=== PATIENT | female | born 1960 | race Caucasian/White ===

== ENCOUNTER 2023-01-16 01:22 | Day surgery (SDC) | payer BC, SELFPAY ==
[2023-01-07 12:36] VITALS: BMI 21.9
[2023-01-16 09:33] VITALS: BP 196/110; PULSE 80; RESP 18; TEMP 36.5; O2SAT 100; BMI 22.6
--- NOTE | 2023-01-16 09:42 | WPDANESEPPF ---
Anes - Initial Pre Proc Eval Procedure: Operation Date: 01/16/23 10:45 Proposed Procedures p Colonoscopy - Christo Nolasco MD Date/Time: 01/16/23 09:42 Surgeon: Christo Nolasco MD Pre Op Diagnosis: positive cologuard Patient Data Age: 62 Gender: F Height: 1.57 m Weight: 56.2 kg Last Vital Signs Temp 36.5 C 01/16/23 09:33 Pulse 80 01/16/23 09:33 Resp 18 01/16/23 09:33 Pulse Ox 100 01/16/23 09:33 O2 Del Method Room Air 01/16/23 09:33 Allergies Allergy/AdvReac Type Severity Reaction Status Date / Time No Known Allergies Allergy Mild Verified 01/07/23 12:36 Home Medications Medication Instructions Recorded Confirmed Type olmesartan 40 mg tablet 40 mg PO DAILY 09/01/22 01/07/23 History valacyclovir 500 mg tablet 500 mg PO DAILY #90 tabs 12/02/22 01/07/23 Rx atorvastatin 20 mg tablet 20 mg PO DAILY 01/07/23 01/07/23 History cholecalciferol (vitamin D3) 25 25 mcg PO DAILY 01/07/23 01/07/23 History mcg (1,000 unit) tablet (Vitamin D3) metoprolol succinate 25 mg 25 mg PO DAILY 01/07/23 01/07/23 History tablet,extended release 24 hr Patient hx anesthesia problems: none Family hx anesthesia problems: none Results Review: All pre-operative results and documents have been reviewed as part of the pre-operative evaluation. [facility] Past Medical History Medical History (Updated 01/16/23 @ 10:25 by Christo Nolasco MD) Hypertension PCR DNA positive for HSV2 Positive colorectal cancer screening using Cologuard test Vaginal delivery x2 Surgical History Surgical History History of tubal ligation Family History Family History Grandparent Diabetes mellitus paternal grandmother Family history of stroke maternal grandmother Mother Hypertension Acute myocardial infarction Father Leukemia Other Malignant neoplasm of liver maternal aunt Social History Social History (Updated 09/01/22 @ 10:06 by MIRLANDE Vela) Smoking packs per day: 0.5 Smoking cigarettes per day: 10.0 Years smoked: 30 Smoking pack-years: 15.00 Smoking status: Current every day smoker Tobacco type: cigarettes Alcohol intake: current Drinks per week: 10 Substance use: never Substance use type: does not use Living arrangements: with family Additional living arrangements comments: Occupation/Education: retired Gender identity (if verbalized by the patient): Female Sexual Orientation (if Verbalized by the Patient): Straight or Heterosexual Spiritual care concerns: No Anes - Eval Final PreProcedure Day of Procedure 01/16/23 09:42 Patient weight: normal Heart: regular rate and rhythm Lungs: clear to auscultation and normal air movement Airway: Mallampati scale class II Neurological: alert and oriented Last oral intake: >/= 8 hours ASA classification: II Emergent: no Anesthetic plan: proceed Anesthesia type and monitoring: general GIVS Results Review: All pre-operative results and documents have been reviewed as part of the pre-operative evaluation. Informed Consent: The patient's anesthetic plan and its attendant risks and benefits were discussed with the patient/family/POA. Questions were solicited and answers provided to the satisfaction of the patient/family/POA.
[2023-01-16] MEDS: LACTATED RINGERS 1,000 ML 150 ML IV CONT (09:47)
--- NOTE | 2023-01-16 09:49 | SUR.PREOP ---
Dr. Ross notified of pt. blood pressure. No orders received at this time.
--- NOTE | 2023-01-16 10:24 | PM.HPGS ---
History of Present Illness History of Present Illness Consent: Risks, benefits, and alternatives have been discussed and questions answered. Patient agrees to proceed with procedure. Chief complaint: positive cologuard Narrative: Jessica Mac is a 62 year old female here for first colonoscopy, had + cologuard Review of Systems Constitutional: Constitutional: Denies headache(s) and Denies weakness Eyes: Eyes: Denies blurry vision ENT: Reports Normal hearing present, Denies headache(s) and Denies neck pain Cardiovascular: Cardiovascular: Denies chest pain and Denies dyspnea Respiratory: Respiratory: Denies dyspnea Gastrointestinal: Gastrointestinal: Reports no additional gastrointestinal complaints Genitourinary: Genitourinary: Denies dysuria Musculoskeletal: Musculoskeletal: Denies neck pain Integumentary/Breasts: Skin/Breast: Denies dry skin Neurologic: Reports Normal hearing present, Denies headache(s) and Denies weakness Psychiatric: Psychiatric: Denies anxiety Endocrine: Endocrine: Denies change in body appearance Hematologic/Lymphatic: Hematologic/Lymphatic: Denies easy bleeding Allergic/Immunologic: Allergic/Immunologic: Denies urticaria PMFSH Past Medical History Medical History (Updated 01/16/23 @ 10:25 by Christo Nolasco MD) Hypertension PCR DNA positive for HSV2 Positive colorectal cancer screening using Cologuard test Vaginal delivery x2 Surgical History Surgical History History of tubal ligation Family History Family History Grandparent Diabetes mellitus paternal grandmother Family history of stroke maternal grandmother Mother Hypertension Acute myocardial infarction Father Leukemia Other Malignant neoplasm of liver maternal aunt Social History Social History (Updated 09/01/22 @ 10:06 by MIRLANDE Vela) Smoking packs per day: 0.5 Smoking cigarettes per day: 10.0 Years smoked: 30 Smoking pack-years: 15.00 Smoking status: Current every day smoker Tobacco type: cigarettes Alcohol intake: current Drinks per week: 10 Substance use: never Substance use type: does not use Living arrangements: with family Additional living arrangements comments: Occupation/Education: retired Gender identity (if verbalized by the patient): Female Sexual Orientation (if Verbalized by the Patient): Straight or Heterosexual Spiritual care concerns: No Meds Home Medications and Allergies Home Medications Medication Instructions Recorded Confirmed Type olmesartan 40 mg tablet 40 mg PO DAILY 09/01/22 01/07/23 History valacyclovir 500 mg tablet 500 mg PO DAILY #90 tabs 12/02/22 01/07/23 Rx atorvastatin 20 mg tablet 20 mg PO DAILY 01/07/23 01/07/23 History cholecalciferol (vitamin D3) 25 25 mcg PO DAILY 01/07/23 01/07/23 History mcg (1,000 unit) tablet (Vitamin D3) metoprolol succinate 25 mg 25 mg PO DAILY 01/07/23 01/07/23 History tablet,extended release 24 hr Allergies Allergy/AdvReac Type Severity Reaction Status Date / Time No Known Allergies Allergy Mild Verified 01/07/23 12:36 Vital Signs Vital Signs - 24 hr 01/16/23 09:33 Temperature 97.7 F Pulse Rate 80 Respiratory Rate 18 Blood Pressure 196/110 H Pulse Oximetry 100 Oxygen Delivery Room Air Exam Const: General: comfortable and no acute distress HENMT: Face/Nose/Sinus: Normal nares present Eyes: General: appearance normal, both eyes and all related structures Neck: Neck: no JVD Resp: Auscultation: clear to auscultation bilaterally Cardio: Rate: regular rate Rhythm: regular rhythm GI: Inspection: non-distended GI Palp: Yes Soft to palpation Skin: General skin exam: normal color Neuro: General: gait normal Speech: normal speech Extrem: General: normal to inspection Psych: Me
[2023-01-16 11:01] VITALS: BP 150/110; PULSE 92; RESP 20; O2SAT 99
[2023-01-16 11:11] VITALS: BP 174/102; PULSE 78; RESP 20; O2SAT 100
[2023-01-16 11:21] VITALS: BP 184/100; PULSE 62; RESP 18; O2SAT 100
--- NOTE | 2023-01-16 11:21 | SUR.PHASEII ---
DR DODD NOTIFIED OF PT'S BLOOD PRESSURE AND VITAL SIGNS, 184/100, 62, 100% ON ROOM AIR, 18. PT STATES SHE IS ON BLOOD PRESSURE MEDS THAT SHE TAKES OF AN EVENING. NO NEW ORDERS. PT INSTRUCTED TO RESUME ALL MEDS ONCE SHE IS HOME. PT AND SPOUSE STATE UNDERSTANDING.
== END 2023-01-16 11:31 | disposition home or self-care (01) ==
PROVIDERS: PCP Family Medicine Sports Medicine; Visit Provider Internal Medicine Gastroenterology
PROC: 0DJD8ZZ Inspection of Lower Intestinal Tract, Via Natural or Artificial Opening Endoscopic (ICD-10-PCS; CPT 45378; principal; 2023-01-16 10:45)
DX: R19.5 Other fecal abnormalities (principal); D12.2 Benign neoplasm of ascending colon; K63.5 Polyp of colon; I10 Essential (primary) hypertension
CPT/HCPCS: 45385; 45380; 88305; J2704; J7120

== ENCOUNTER 2025-11-05 14:32 | Emergency (ER) | payer BC, SELFPAY ==
[2025-11-05] VITALS (8 sets, daily range): BP systolic 91–134; BP diastolic 54–93; PULSE 60–73; RESP 12–18; TEMP 36.2–36.6; O2SAT 97–100
--- NOTE | ~2025-11-05 | CT_ITS ---
EXAMINATION: CT brain wo con DATE: 11/05/2025 15:28 INDICATION: Syncopal episode. TECHNIQUE: Computed tomography (CT) of the head was performed without intravenous contrast. The mA was adjusted according to patient size. Iterative reconstruction technique was employed. The dose-length product was 605.33 mGy-cm. COMPARISON: Carotid Doppler exam dated 01/13/2011. FINDINGS: No acute bleed. No extra-axial collections. No effacement of sulci. No evidence of ventriculomegaly or midline shift. Age-appropriate, symmetric global cerebral and cerebellar atrophy. IMPRESSION: 1. No acute findings in the limited noncontrast CT head. Reviewed, dictated and finalized at location T. PRINCIPAL TECHNICAL ARCHITECT
--- NOTE | ~2025-11-05 | XR_ITS ---
EXAMINATION: XR chest 2V DATE: 11/05/2025 15:15 INDICATION: Pneumonia. TECHNIQUE: Frontal and lateral views of the chest were obtained. COMPARISON: None. FINDINGS: Heart size is normal. Lungs are free of acute processes. Luma and mediastinum are normal. Significant scoliosis of thoracolumbar spine. IMPRESSION: 1. No acute pulmonary findings. Scoliosis of thoracolumbar spine. Reviewed, dictated and finalized at location T. [employer]
--- OUTSIDE RECORDS SUMMARY | 2025-11-05 14:34 | XMS_ITS | Clinical Summary ---
Author Organization [facility] Address [address] [place] [address] Care Team Providers Care Cost Manager Name Role Phone Whitley Zimmerman NP Primary Care Provider Allergies No known active allergies Medications atorvastatin (LIPITOR) 20 mg tablet Take 1 tablet (20 mg total) by mouth daily 4 Active estradioL (ESTRACE) 0.01 % (0.1 mg/gram) vaginal cream Insert 2 g into the vagina daily 3 Active metoprolol XL (TOPROL-XL) 50 mg extended release tablet Take 1 tablet (50 mg total) by mouth daily 4 Active oxyCODONE-aceta minophen (PERCOCET) 5-325 mg per tabletIndicatio ns:Pain Take 1-2 tablets by mouth every 8 (eight) hours as needed for pain 20 tablet 4 Active Additional Information Patient not taking.Reported on 01/05/2024 valACYclovir (VALTREX) 500 mg tablet valacyclovir 500 mg tablet Active spironolactone (ALDACTONE) 50 mg tablet Take by mouth 4 Active olmesartan-hydr ochlorothiazide (BENICAR HCT) 40-25 mg per tablet Take by mouth 4 Active nicotine (NICODERM CQ) 21 mg nicotine 21 mg/24 hr patch 24 hour Active Active Problems Problem Noted Date Diagnosed Date Acute appendicitis with gene ralized peritonitis without gangrene, perforation, or abscess 01/05/2024 Acute abdominal pain 12/14/2023 Surgical History Surgery Date Site/Laterality Comments APPENDECTOMY 12/15/2023 Social History Tobacco Use Types Packs/Day Years Used Date Smoking Tobacco: Every Day Cigarettes 0.3 15 Tobacco Cessation:Ready to Q uit: Not Asked; Counseling Given: Not Answered AUDIT-C Answer Date Recorded Q1: How often do you have a drink containing alcohol? 4 or more times a week 12/14/2023 Q2: How many drinks containi ng alcohol do you have on a typical day when you are drinking? 3 or 4 Q3: How often do you have si x or more drinks on one occasion? Never 12/14/2023 Personal Safety Answer Date Recorded Have you ever been in or are you currently in a harmful physical or emotional relationship or is someone making you feel afraid or unsafe? 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 Gender Identity Not on file Sexual Orientation Not on file Last Filed Vital Signs Vital Sign Reading Time Taken Comments Blood Pressure 120/86 01/05/2024 1:08 PM SPRAY MACHINE OPERATOR Pulse 82 01/05/2024 1:08 PM SPRAY MACHINE OPERATOR Temperature 36.3 C (97.3 F) 01/05/2024 1:08 PM SPRAY MACHINE OPERATOR Respiratory Rate 18 12/15/2023 11:2 6 AM SPRAY MACHINE OPERATOR Oxygen Saturation 98% 01/05/2024 1:08 PM SPRAY MACHINE OPERATOR Inhaled Oxygen Concentration - - Weight 55.3 kg (121 lb 14.4 oz) 01/05/2024 1:08 PM SPRAY MACHINE OPERATOR Height 157.5 cm (5' 2) 01/05/2024 1:08 PM SPRAY MACHINE OPERATOR Body Mass Index 22.3 01/05/2024 1:08 PM SPRAY MACHINE OPERATOR Plan of Treatment Health Maintenance Due Date Last Done Comments Breast Cancer Screening-Mammogram 1959 Colon Cancer Screening-Colonoscopy 1959 Depression Screening 1959 Hepatitis C Screening 1959 Osteoporosis Screening-Bone Density Scan 1959 DTaP/Tdap/Td Vaccine (1 - Tdap) 1970 Hepatitis B Screening 1977 Pneumococcal vaccine 65+ (1 of 2 - PCV) 1978 Zoster Vaccine (1 of 2) 2009 Well Visit 65+ 2024 Fall Risk Assessment 12/15/2024 12/15/2023 Covid-19 Vaccine ( season) 07/10/202502/2022, 02/13/2021 Influenza Vaccine (#1) 2025 10/06/2016 Insurance [facility] Advance Directives For more information, please contact: [phone] * Full Code (Latest Code Status on File) Date Activated Date Inactivated Comments 12/14/2023 7:22 PM 12/15/2023 4:39 PM Care Teams Cost Manager Relationship Specialty Start Date End Date Whitley Zimmerman NP [address] [place] [address] PCP - General 12/14/23
--- OUTSIDE RECORDS SUMMARY | 2025-11-05 14:34 | XMS_ITS | Encounter Summary ---
Author Organization [facility] Address [address] [place] [address] Care Team Providers Care Test Deskman Name Role Phone Van Krueger MD Primary Care Provider [phone] Encounter Details Date Type Department Care Team (Late st Contact Info) Description 11/13/2020 Lab Requisition [facility] DermPath Lab [address] [place] [address] Lamar Vyas DO [address] [facility] [address] [place] [address] Social History Tobacco Use Types Packs/Day Years Used Date Smoking Tobacco: Never Assessed Comments Unknown Sex and Gender Information Value Date Recorded Sex Assigned at Not on file 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 Gender Identity Not on file Sexual Orientation Not on file documented as of this encounter Plan of Treatment Not on file documented as of this encounter Procedures Procedure Name Priority Date/Time Associated Diagnosis Comments DERMATOPATHOLOGY Routine 11/12/2020 12:0 0 AM CHEESE PANCAKE ROLLER documented in this encounter Results * DERMATOPATHOLOGY (11/12/2020 12:00 AM CHEESE PANCAKE ROLLER) Case Report Dermatopathology Report Case: [id number] Authorizing Provider: Lamar Vyas DO Collected: 11/12/2020 12:00 AM Ordering Location: [facility] Care DermPath Lab Received: 11/13/2020 06:36 AM Pathologist: Florecita Ramirez MD Specimen: Skin, left hand 6:44 PM [employer] DERMATOPATHOLOGY LABORATORY Final Diagnosis Specimen A. SKIN, left hand: SQUAMOUS PROLIFERATION (D48.5) OVERLYING CUTANEOUS HORN (L85.8) (see microscopic description and comment) 1 6:44 PM [facility] DERMATOPATHOLOGY LABORATORY at [address] [employer] [employer]LLER Clinical History R/O cutaneous horn, BVK vs HAK vs SCC, non-healing. 1 6:44 PM [facility] DERMATOPATHOLOGY LABORATORY Gross Description Specimen A: Received is one formalin filled container labeled with the patient's name and designated left hand. The specimen consists of a shave measuring [id number]. Jar 0. 1 6:44 PM [facility] DERMATOPATHOLOGY LABORATORY Microscopic Description Specimen A. SKIN, left hand: Sections show maturational disarray and nuclear pleomorphism of keratinocytes extending throughout the full thickness of the specimen. There is focal parakeratosis and a column of marked compact hyperkeratosis.. The base of this lesion is not visualized. COMMENT: The histological differential diagnosis includes an irritated and inflamed benign keratosis, an actinic keratosis, and squamous cell carcinoma. 1 6:44 PM [facility] DERMATOPATHOLOGY LABORATORY Disclaimer An external and internal positive and negative controls are appropriate for the histochemical, immunohistochemical and immunofluorescence stain(s) in this case (if any), except where stated explicitly. The performance characteristics of the stain(s) cited in this report were developed and its performance characteristic determined by the Dermatopathology Laboratory at [facility], directed by Dr. Tian Sanchez. These tests need not be, and therefore are not, approved by the [place] Food and Drug Administration. The tests are used for clinical purposes. Billing Codes Specimen Charges Stain Charges 78245 1 1 6:44 PM [facility] DERMATOPATHOLOGY LABORATORY Embedded Images 1 6:44 PM [facility] DERMATOPATHOLOGY LABORATORY Pathology/Cytolog y TISSUE SPECIMEN FROM SKIN / Unknown 11/12/2020 11/13/2020 6:36 AM [facility] us Lamar Vyas DO LAB - PATHOLOGY/CYTOLOGY ORDERABLES Final Result DERMATOPATHOLOGY LABORATORY [facility] - Department of Dermatology [address], [address] [phone] documented in this encounter Visit Diagnoses Not on filedocumented in this encounter Care Teams Test Deskman Relationship Specialty Start Date End Date Van Kureger MD [address] [place] [address] PCP - General 02/05/23 documented as of this encounter
--- OUTSIDE RECORDS SUMMARY | 2025-11-05 14:34 | XMS_ITS | Clinical Summary ---
Author Organization [facility] [employer] Address [address] [place] [address] Care Team Providers Care Psychiatric Therapist Name Role Phone Van Krueger MD Primary Care Provider [phone] [facility] [employer],non-owned Affiliates and Associated Physician Practices is amultiple site organization consisting of ambulatory clinics and hospital sitesin [place], [place], [place] and [place]. This disclosure is being madepursuant to the Care Everywhere program and may not contain all information available regarding this patient. Last updated 18.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 Gender Identity Not on file Sexual Orientation Not on file Plan of Treatment Health Maintenance Due Date Last Done Comments BONE DENSITY TESTING 1959 COLOGUARD (AGES 45-75) - COL ON CA SCREENING 1959 COLON MONITORING 1959 COLONOSCOPY - COLON CA SCREENING 1959 CT COLONOGRAPHY - COLON CA SCREENING 1959 Colorectal Cancer Screening 1959 FIT - COLON CA SCREENING 1959 FLEX SIG - COLON CA SCREENING 1959 LIPID TESTING 1959 MAMMOGRAM 1959 HEPATITIS C SCREENING 08/22/1977 DTAP/TDAP/TD VACCINES (1 - Tdap) 1978 PNEUMOCOCCAL VACCINE 50+ (1 of 1 - PCV) 2009 ZOSTER VACCINE (1 of 2) 2009 DEPRESSION SCREENING 11/09/2024 COVID-19 VACCINE (1 - 2024-2 6 season) 2025 INFLUENZA VACCINE (#1) 2025 Respiratory Syncytial Virus (RSV) Vaccine Pt: or over 60 yrs (1 - 1-dose 75+ series) 2034 HEPATITIS B VACCINE Aged Out No longe r eligible based on patient's age to complete this topic HIB VACCINE Aged Out No longer eligi ble based on patient's age to complete this topic HPV VACCINE Aged Out No longer eligi ble based on patient's age to complete this topic MENINGOCOCCAL (Group B) VACC INE SHARED DECISION-MAKING Aged Out No longer eligibl e based on patient's age to complete this topic MENINGOCOCCAL GROUPS A/C/Y/W VACCINE Aged Out No longer eligible b ased on patient's age to complete this topic Care Teams Psychiatric Therapist Relationship Specialty Start Date End Date Van Krueger MD [address] [place] [address] PCP - General 02/05/23
--- NOTE | 2025-11-05 14:40 | ECG_ITS ---
Test Date: 2025-11-05 14:45:32 Measurements Intervals [place] Rate: 61 P: -5 AR: 250 QRS: -17 QRSD: 77 T: 0 QT: 414 QTc: 419 Interpretive Statements SINUS RHYTHM WITH FIRST DEGREE AV BLOCK WITH OCCASIONAL VENTRICULAR PREMATURE COMPLEXES LOW QRS VOLTAGE IN PRECORDIAL LEADS ANTEROSEPTAL INFARCT, AGE INDETERMINATE CONSIDER INFERIOR INFARCT, AGE INDETERMINATE BASELINE ARTIFACT- I, II, III, AVR, AVL, AVF, V3-V6 ABNORMAL ECG No previous ECG available for comparison Electronically Signed On 11-05-2025 20:07:29 BINDERY MACHINE TENDER by Filemon Avendano D.O.
--- NOTE | 2025-11-05 14:42 | ED_ITS ---
HPI - Syncope General Chief Complaint: Syncope <Allie Matthews APRN - Last Filed: 11/05/25 14:45> Stated Complaint: syncope <Allie Matthews APRN - Last Filed: 11/05/25 14:45> Time Seen by Provider: 11/05/25 14:42 <Allie Matthews APRN - Last Filed: 11/05/25 14:45> Focused HPI: Patient is a 65-year-old female presents to the ER after experiencing a syncopal episode. Her family reports they were out to eat, pt had half a [place] when she started feeling faint. Patient's family reports her eyes became fixed and she started slumping in her chair. Her family reports they caught her before she hit anything. Patient's reports he believes patient stopped breathing so 1 of his family members ?gave her a few breaths and she started breathing again. She endorses nausea immediately after regaining consciousness and proceeded to vomit. Patient endorses a history of high blood pressure, hyperlipidemia, and alcoholism. She reports she has recently started to cut back on her alcohol consumption. Patient reports she has never gone through alcohol withdrawal. GENERAL: Ill-appearing, well-nourished, and in no acute distress. HEAD: Normocephalic, atraumatic. CHEST: Mild crackles to bases. ?No respiratory distress. HEART: Regular rate and rhythm.? NEURO: ?Alert and oriented x3. Patient screened in triage and initial orders placed.? ?Additional care and disposition to be based upon?diagnostic testing and treatment. <Allie Matthews APRN - Last Filed: 11/05/25 14:45> History of Present Illness HPI narrative: Agree the HPI. Immediately after regaining consciousness patient was actively vomiting at the restaurant. She had eaten a hamburger as well as peeling each around and had a half daquari. She has not been having any melena. Recently had issues with a GI bleed and has quit drinking. <Kavin Brady MD - Last Filed: 11/05/25 19:52> Related Data Home Medications: Home Medications ?Medication ?Instructions ?Recorded ?Confirmed ?Last Taken ?Type olmesartan 40 mg tablet 40 mg PO DAILY 09/01/2207/03 Unknown History atorvastatin 20 mg tablet 20 mg PO DAILY 01/07/2307/03 Unknown History <Allie Matthews APRN - Last Filed: 11/05/25 14:45> Allergies/Adverse Reactions: Allergies Allergy/AdvReac Type Severity Reaction Status Date / Time No Known Allergies Allergy Mild Verified 10/16/25 10:24 <Allie Matthews APRN - Last Filed: 11/05/25 14:45> Review of Systems 2 Review of Systems: All systems reviewed & are unremarkable except as noted in HPI and below <Kavin Brady MD - Last Filed: 11/05/25 19:52> Constitutional: Constitutional: Reports no additional constitutional complaints <Kavin Brady MD - Last Filed: 11/05/25 19:52> ENT: Reports system reviewed and no additional complaints, except as documented <Kavin Brady MD - Last Filed: 11/05/25 19:52> Cardiovascular: Cardiovascular: Reports no additional cardiovascular complaints <Kavin Brady MD - Last Filed: 11/05/25 19:52> Respiratory: Respiratory: Reports no additional respiratory complaints < Kavin Brady MD - Last Filed: 11/05/25 19:52> Gastrointestinal: Gastrointestinal: Reports no additional gastrointestinal complaints <Kavin Brady MD - Last Filed: 11/05/25 19:52> Neurologic: Reports system reviewed and no additional complaints, except as documented <Kavin Brady MD - Last Filed: 11/05/25 19:52> PMFSH Past Medical History Medical History: Medical History Screening mammogram, encounter for Positive colorectal cancer screening using Cologuard test Vaginal delivery x2 Hypertension PCR DNA positive for HSV2 <Allie Matthews APRN - Last Filed: 11/05/25 14:45> Surgical History Surgical History: Surgical History History of appendectomy History of tubal ligation <Allie Matthews APRN - Last Filed: 11/05/25 14:45> Family History Family History: Family History Grandparent Diabetes mellitus paternal grandmother Family history of stroke maternal grandmother Mother Hypertension Acute myocardial infarction Father Leukemia Other Malignant neoplasm of liver maternal aunt <Allie Matthews APRN - Last Filed: 11/05/25 14:45> Social History Social History: Social History (Updated 10/16/25 @ 10:26 by MIRLANDE Vela) Smoking packs per day: 0.5 Smoking cigarettes per day: 10.0 Years smoked: 30 Smoking pack-years: 15.00 Smoking status: Current every day smoker Tobacco type: cigarettes Second hand tobacco smoke exposure: Yes Alcohol intake: current Drinks per week: 5 Substance use: never Substance use type: does not use Lack of Transportation: No Lack of Food: Never True Current Housing: Decline to Answer Concerned About Future Housing: Decline to Answer Difficulty Paying Gas/Electric Bills: Decline to Answer Difficulty Paying for Meds: Decline to Answer Currently Unemployed: Decline to Answer Education: Decline to Answer Difficulty w/ Childcare or Family Care: Decline to Answer Living arrangements: with family Additional living arrangements comments: Occupation/Education: retired Gender identity (if verbalized by the patient): Female Sexual Orientation (if Verbalized by the Patient): Straight or Heterosexual Spiritual care concerns: No <Allie Matthews APRN - Last Filed: 11/05/25 14:45> Exam 2 Narrative: GENERAL: Well-appearing, well-nourished, and in no acute distress. HEAD: Normocephalic, atraumatic. ENT: Mucous membranes moist. CHEST: Clear to auscultation. No respiratory distress. HEART: Regular rate and rhythm. Normal peripheral pulses. ABDOMEN: Soft, nontender, nondistended. EXTREMITIES: Normal range of motion. No edema. SKIN: Warm, dry, no rash. NEURO: Alert and oriented x3. PSYCH: Normal mood and affect. <Kavin Brady MD - Last Filed: 11/05/25 19:52> Course Course Emergency Course: Patient resting comfortably. Normal orthostatic vital signs. No comparison labs. Sodium mildly low, creatinine 1.2. Hemoglobin 10. Patient feels well. Feels comfortable with discharge home. <Kavin Brady MD - Last Filed: 11/05/25 19:52> Vital Signs Vital signs: Vital Signs Temperature 97.1 F L 11/05/25 14:36 Pulse Rate 62 11/05/25 14:36 Respiratory Rate 18 11/05/25 14:36 Blood Pressure 91/54 L 11/05/25 14:36 Pulse Oximetry 100 11/05/25 14:36 Oxygen Delivery Room Air 11/05/25 14:36 Temperature 98 F 11/05/25 19:20 Pulse Rate 69 11/05/25 19:20 Respiratory Rate 16 11/05/25 19:20 Blood Pressure 111/72 11/05/25 19:20 Pulse Oximetry 100 11/05/25 19:20 Oxygen Delivery Room Air 11/05/25 14:36 <Allie Matthews HAND BUTTON SPLITTER - Last Filed: 11/05/25 14:45> Vital Signs Temperature 97.1 F L 11/05/25 14:36 Pulse Rate 62 11/05/25 14:36 Respiratory Rate 18 11/05/25 14:36 Blood Pressure 91/54 L 11/05/25 14:36 Pulse Oximetry 100 11/05/25 14:36 Oxygen Delivery Room Air 11/05/25 14:36 Temperature 98 F 11/05/25 19:20 Pulse Rate 69 11/05/25 19:20 Respiratory Rate 16 11/05/25 19:20 Blood Pressure 111/72 11/05/25 19:20 Pulse Oximetry 100 11/05/25 19:20 Oxygen Delivery Room Air 11/05/25 14:36 <Kavin Brady MD - Last Filed: 11/05/25 19:52> Critical Care Time Critical Care Time Critical Care Time: No <Kavin Brady MD - Last Filed: 11/05/25 19:52> Discharge Plan Discharge Clinical Impression: Syncope, vasovagal <Allie Matthews APRN - Last Filed: 11/05/25 14:45> Patient Disposition: Home <Allie Matthews APRN - Last Filed: 11/05/25 14:45> Condition: Stable <Allie Matthews APRN - Last Filed: 11/05/25 14:45> Instructions: Syncope (ED) <Allie Matthews APRN - Last Filed: 11/05/25 14:45> Additional Instructions: Please return to the emergency department if you develop severe and persistent chest pain, difficulty breathing, dizziness, leg swelling or if you are coughing up blood as these can be signs of a medical emergency. Please call your doctor for a follow up appointment to determine the need for further testing. <Allie Matthews APRN - Last Filed: 11/05/25 14:45> Patient Language: Kyrgyz <Allie Matthews APRN - Last Filed: 11/05/25 14:45> Prescriptions: No Action olmesartan 40 mg tablet 40 mg PO DAILY estradiol 0.01 % (0.1 mg/gram) cream 1 g vaginal 3XW Qty: 42.5 3RF atorvastatin 20 mg tablet 20 mg PO DAILY valacyclovir 500 mg tablet 500 mg PO DAILY Qty: 90 3RF <Allie Matthews APRN - Last Filed: 11/05/25 14:45> Follow-up/Referrals: UNKNOWN,DOCTOR [Non-Staff] - 1 Week <Allie Matthews APRN - Last Filed: 11/05/25 14:45> MDM Differential Diagnosis Differential Diagnosis: Arrhythmia, vasovagal syncope, P, intracranial hemorrhage, UTI, sepsis < Kavin Brady MD - Last Filed: 11/05/25 19:52> Lab Data Result diagrams: 11/05/25 17:28 11/05/25 17:28 <Allie Matthews APRN - Last Filed: 11/05/25 14:45> Labs: Lab Results 11/05/25 11/05/25 11/05/25 Range/Units 17:28 17:29 18:38 WBC 8.5 (4.5-10.0) K/mm3 RBC 3.28 L (4.2-5.4) M/mm3 Hgb 10.8 L (12.0-15.0) g/dL Hct 30.2 L (37.0-47.0) % MCV 92.1 (80-100) fl MCH 32.9 (26-34) pg MCHC 35.8 (32-36) g/dl RDW 12.3 (11.5-14.5) % Plt Count 275 (150-375) k/mm3 MPV 9.2 (7.4-10.4) fl Immature Gran % (Auto) 0.6 H (0-0.5) % Neut % (Auto) 82.1 H (45.5-73.1) % Lymph % (Auto) 10.9 L (18.3-44.2) % [place] % (Auto) 5.2 (2.6-8.5) % Eos % (Auto) 0.6 (0-4.4) % Baso % (Auto) 0.6 (0.2-1.2) % Lymph # (Auto) 0.93 (0.9-3.2) K/mm3 [place] # (Auto) 0.4 (0.1-0.6) K/mm3 Eos # (Auto) 0.1 (0-0.3) K/mm3 Baso # (Auto) 0.1 (0.0-0.1) K/mm3 Abs Immat Gran (auto) 0.05 H (0.00-0.031) K/mm3 Absolute Neuts (auto) 7.0 H (1.3-6.7) K/mm3 Absolute Nucleated RBC 0.000 (0.0-0.012) K/mm3 Nucleated RBC % 0.0 (0.0-0.2) % Sodium 126 L (137-145) mmol/L Potassium 3.4 (3.4-5.0) mmol/L Chloride 95 L (98-107) mmol/L Carbon Dioxide 25 (22-30) mmol/L Anion Gap 6 (4-12) mmol/L BUN 19 H (7-17) mg/dL Creatinine 1.29 H (0.7-1.0) mg/dL Estim Creat Clear Calc 30 ml/min Estimated GFR 41 L (59 - ) Glucose 102 (65-110) mg/dL Calcium 9.2 (8.4-10.2) mg/dL Total Bilirubin 0.7 (0.2-1.3) mg/dL AST 41 H (14-36) U/L ALT 30 (6-35) U/L Alkaline Phosphatase 80 (38-126) U/L Total Protein 6.9 (6.3-8.2) g/dL Albumin 4.2 (3.5-5.1) g/dL Urine Color Yellow (Yellow) Urine Appearance Clear (Clear) Urine pH 7.5 (5.0-9.0) Ur Specific [place] 1.015 (1.001-1.035) Urine Protein Negative (Negative) mg/dL Urine Glucose (UA) Negative (Negative) mg/dL Urine Ketones Trace H (Negative) mg/dL Ur Blood (Man) Negative (Negative) Urine Nitrate Negative (Negative) Urine Bilirubin Negative (Negative) Urine Urobilinogen 1.0 (<2.0) mg/dL Add Ur Microanalysis Reviewed Leukocyte Esterase Rfl 1+ H (Negative) KALLI/UL Urine RBC 3-5 H (0-2) /hpf Urine WBC 0-5 (0-3) /hpf Ur Squamous Epith Cells Occasional (Few) /hpf Urine Bacteria None seen /hpf Urine Casts 3-5 Ethyl Alcohol < 10 (<10) mg/dL Influenza A (RT-PCR) Negative (Negative) Influenza B (RT-PCR) Negative (Negative) RSV (RT-PCR) Negative (Negative) SARS-CoV-2 RNA (RT-PCR) Negative (Negative) <Allie Matthews, HAND BUTTON SPLITTER - Last Filed: 11/05/25 14:45> Lab Results 11/05/25 11/05/25 11/05/25 Range/Units 17:28 17:29 18:38 WBC 8.5 (4.5-10.0) K/mm3 RBC 3.28 L (4.2-5.4) M/mm3 Hgb 10.8 L (12.0-15.0) g/dL Hct 30.2 L (37.0-47.0) % MCV 92.1 (80-100) fl MCH 32.9 (26-34) pg MCHC 35.8 (32-36) g/dl RDW 12.3 (11.5-14.5) % Plt Count 275 (150-375) k/mm3 MPV 9.2 (7.4-10.4) fl Immature Gran % (Auto) 0.6 H (0-0.5) % Neut % (Auto) 82.1 H (45.5-73.1) % Lymph % (Auto) 10.9 L (18.3-44.2) % [place] % (Auto) 5.2 (2.6-8.5) % Eos % (Auto) 0.6 (0-4.4) % Baso % (Auto) 0.6 (0.2-1.2) % Lymph # (Auto) 0.93 (0.9-3.2) K/mm3 [place] # (Auto) 0.4 (0.1-0.6) K/mm3 Eos # (Auto) 0.1 (0-0.3) K/mm3 Baso # (Auto) 0.1 (0.0-0.1) K/mm3 Abs Immat Gran (auto) 0.05 H (0.00-0.031) K/mm3 Absolute Neuts (auto) 7.0 H (1.3-6.7) K/mm3 Absolute Nucleated RBC 0.000 (0.0-0.012) K/mm3 Nucleated RBC % 0.0 (0.0-0.2) % Sodium 126 L (137-145) mmol/L Potassium 3.4 (3.4-5.0) mmol/L Chloride 95 L (98-107) mmol/L Carbon Dioxide 25 (22-30) mmol/L Anion Gap 6 (4-12) mmol/L BUN 19 H (7-17) mg/dL Creatinine 1.29 H (0.7-1.0) mg/dL Estim Creat Clear Calc 30 ml/min Estimated GFR 41 L (59 - ) Glucose 102 (65-110) mg/dL Calcium 9.2 (8.4-10.2) mg/dL Total Bilirubin 0.7 (0.2-1.3) mg/dL AST 41 H (14-36) U/L ALT 30 (6-35) U/L Alkaline Phosphatase 80 (38-126) U/L Total Protein 6.9 (6.3-8.2) g/dL Albumin 4.2 (3.5-5.1) g/dL Urine Color Yellow (Yellow) Urine Appearance Clear (Clear) Urine pH 7.5 (5.0-9.0) Ur Specific [place] 1.015 (1.001-1.035) Urine Protein Negative (Negative) mg/dL Urine Glucose (UA) Negative (Negative) mg/dL Urine Ketones Trace H (Negative) mg/dL Ur Blood (Man) Negative (Negative) Urine Nitrate Negative (Negative) Urine Bilirubin Negative (Negative) Urine Urobilinogen 1.0 (<2.0) mg/dL Add Ur Microanalysis Reviewed Leukocyte Esterase Rfl 1+ H (Negative) KALLI/UL Urine RBC 3-5 H (0-2) /hpf Urine WBC 0-5 (0-3) /hpf Ur Squamous Epith Cells Occasional (Few) /hpf Urine Bacteria None seen /hpf Urine Casts 3-5 Ethyl Alcohol < 10 (<10) mg/dL Influenza A (RT-PCR) Negative (Negative) Influenza B (RT-PCR) Negative (Negative) RSV (RT-PCR) Negative (Negative) SARS-CoV-2 RNA (RT-PCR) Negative (Negative) <Kavin Brady MD - Last Filed: 11/05/25 19:52> Imaging Data Radiologist's impression: ITS Impressions Chest X-Ray 11/05/25 15:16 IMPRESSION: 1. No acute pulmonary findings. Scoliosis of thoracolumbar spine. Head CT 11/05/25 15:30 IMPRESSION: 1. No acute findings in the limited noncontrast CT head. <Allie Matthews APRN - Last Filed: 11/05/25 14:45> ITS Impressions Chest X-Ray 11/05/25 15:16 IMPRESSION: 1. No acute pulmonary findings. Scoliosis of thoracolumbar spine. Head CT 11/05/25 15:30 IMPRESSION: 1. No acute findings in the limited noncontrast CT head. <Kavin Brady MD - Last Filed: 11/05/25 19:52> ECG Data EKG #1: ECG completion date: 11/05/25 <Kavin Brady MD - Last Filed: 11/05/25 19:52> ECG completion time: 14:45 <Kavin Brady MD - Last Filed: 11/05/25 19:52> normal rate (61), sinus rhythm, PVCs, normal QRS and normal QT < Kavin Brady MD - Last Filed: 11/05/25 19:52>
--- NOTE | 2025-11-05 15:53 | PC.NURSE ---
Family reports patient wants fresh air. Patient wheeled out by family. Family made aware patient had IV in and it would need to be removed if they decided to leave.
[2025-11-05 17:35] LABS: Hematocrit 30.2 % (37.0-47.0); Hemoglobin 10.8 g/dL (12.0-15.0); Immature Granulocyte Percent A 0.6 % (0-0.5); Lymphocytes Absolute Auto 0.93 K/mm3 (0.9-3.2); Mean Corpuscular HGB Conc 35.8 g/dl (32-36); Mean Corpuscular Hemoglobin 32.9 pg (26-34); Mean Corpuscular Volume 92.1 fl (80-100); Nucleated Red Blood Cells Absolute Auto 0.000 K/mm3 (0.0-0.012); Nucleated Red Blood Cells Perc 0.0 % (0.0-0.2); Platelet Count Result 275 k/mm3 (150-375); Red Blood Count 3.28 M/mm3 (4.2-5.4); White Blood Count 8.5 K/mm3 (4.5-10.0)
[2025-11-05 17:48] LABS: Alanine Aminotransferase 30 U/L (6-35); Albumin Level 4.2 g/dL (3.5-5.1); Alkaline Phosphatase 80 U/L (38-126); Anion Gap 6 mmol/L (4-12); Aspartate Amino Transferase 41 U/L (14-36); Bilirubin,Total 0.7 mg/dL (0.2-1.3); Blood Urea Nitrogen 19 mg/dL (7-17); Calcium 9.2 mg/dL (8.4-10.2); Carbon Dioxide 25 mmol/L (22-30); Chloride 95 mmol/L (98-107); Estimated CRCL calculation 30 ml/min; Estimated Glomerular Filt Rate 41; Glucose 102 mg/dL (65-110); Potassium 3.4 mmol/L (3.4-5.0); Sodium 126 mmol/L (137-145); Total Protein 6.9 g/dL (6.3-8.2)
[2025-11-05 18:13] LABS: Influenza A QL RT-PCR Negative (Negative); Influenza B QL RT-PCR Negative (Negative); RSV RNA, RT-PCR Negative (Negative); SARS-CoV-2 RNA PCR Negative (Negative)
--- NOTE | 2025-11-05 19:20 | PC.NURSE ---
Received report from MEGHAN Moulton for cont. f care. Pt AOx4 lying on stretcher respirations even and unlabored. Pt denies pain and/or discomfort at this time. VS WNL
[2025-11-05 19:27] LABS: Add Urine Microscopic? YES; Appearance Urine Clear (Clear); Glucose Urine UA Negative (Negative); Leukocyte Esterase Ur 1+ LEU/UL (Negative); Need Manual Microscopic Reviewed; Nitrate Urine Negative (Negative); Specific Grav Ur 1.015 (1.001-1.035)
== END 2025-11-05 20:25 | disposition home or self-care (01) ==
PROVIDERS: Registered Nurse; Emergency Provider Emergency Medicine; PCP Nurse Practitioner
DX: R55 Syncope and collapse (principal); I10 Essential (primary) hypertension; E78.5 Hyperlipidemia, unspecified; F10.20 Alcohol dependence, uncomplicated; F17.210 Nicotine dependence, cigarettes, uncomplicated; Z20.822 Contact with and (suspected) exposure to COVID-19; Z79.899 Other long term (current) drug therapy
CPT/HCPCS: 36415; 70450; 71046; 80053; 81001; 82077; 85025; 87086; 87637; 93005; 99284